=== PATIENT | male | born 1975 | race Caucasian/White ===

== ENCOUNTER 2022-06-04 02:30 | Emergency (ER) | payer SELFPAY ==
[~2022-06-04] VITALS: Ht 185.4 cm; Wt 112.5 kg
[2022-06-04 02:30] VITALS: BP 136/90
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
[2022-06-04 02:35] VITALS: BP 136/90
--- NOTE | 2022-06-04 02:55 | NUR ---
PATIENT BIB [facility] POLICE DEPT. PATIENT EXAMINED BY . PATIENT MEDICALLY CLEARED AND RELEASED IN CUSTODY IN STABLE CONDITION. ORIGINAL PRE-BOOK FORM GIVEN TO OFFICER KINDRA, #[id number].
== END 2022-06-04 02:55 | disposition home or self-care (01) ==
LOC: MED 02:30
DX: R05.9 Cough, unspecified (principal); Z98.890 Other specified postprocedural states; V49.88XA Car occupant (driver) (passenger) injured in other specified transport accidents, initial encounter; Y93.89 Activity, other specified; Y92.89 Other specified places as the place of occurrence of the external cause; Y99.8 Other external cause status
CPT/HCPCS: 71045; 99283; Q0092